=== PATIENT | male | born 1940 | race Caucasian/White ===

== ENCOUNTER → 2016-07-06 | Day surgery (SDC) | payer OTHER ==
[2016-07-01 11:16] VITALS: BMI 32.0
[~2016-07-06] VITALS: Ht 167.6 cm; Wt 90.0 kg
[~2016-07-06] MED LIST: ACET-1311 PO; ALBINS/ INH; ASPI81TA28 PO; BUSP-8 PO; CARV25TA2 PO; CLX20 PO; CRS/10 PO; DABI150C PO; DIGO0.122 PO; EpHEDrine SULFATE 50MG/5ML SYR ONE; FRS/40 PO; GABA-774 PO; GLYCOPYRROLATE INJ 0.2 MG/ML VIAL ONE; HYG/25 PO; KETAMINE HCL INJ 50 MG/ML 10 ML VIAL ONE; LIDOCAINE HCL 2% 2 ML VIAL (20MG/ML) ONE; LISI-461 PO; LORA10CA2 PO; MAGN400T6 PO; MELATAB2 PO; METF-383 PO; MIDAZOLAM HCL 1 MG/ML 2ML VIAL ONE; MULT-190 PO; NORT50CA PO; NTRGSL/4 UT; POTA20TA16 PO; PRLSR20 PO; PROPOFOL IV EMULSION 10 MG/ML 20 ML VIAL IV ONE; ROPI4TAB3 PO; SODIUM CHLORIDE 0.9% 500ML 500 ML IV ONE; TERA5CAP PO; UMEC1AER INH
[2016-07-06 08:29] VITALS: Ht 167.6 cm; Wt 90.0 kg
--- NOTE | 2016-07-06 08:47 | Endo History and Physical ---
History & Physical Date of Service: July 06, 2016. Chief Complaint: SCREENEING FOR COLON CANCER Referring Physician: DR GONZALEZ History of Present Illness screening colon cancer Past Surgical History Hx Cardiac Surgery: Yes (HEART CATH AND NO STENT) Hx Internal Defibrillator: Yes (01-17-13) Hx Pacemaker: Yes (01-17-13) Hx Abdominal Surgery: No Hx of Implantable Prosthesis: No Hx Post-Op Nausea and Vomiting: No Hx Cancer Surgery: No Hx Thoracic Surgery: No Hx Orthopedic: Yes (RIGHT FOOT BUNIONECTOMY, LT WRIST AND THUMB SURGERY) Hx Urinary Tract Surgery: No Family History None Social History Smoking Status: Former Smoker Hx Substance Use: No Hx Alcohol Use: No Allergies Coded Allergies: Pneumococcal Vaccine (Verified Allergy, Mild, SWELLING, HOT TO TOUCH AND HAD TO TAKE ANTIBIOTICS, 07/01/16) Current Medications Reported Home Medications Medications Dose Route/Sig Max Daily Dose Days Date Category Proventil 0.083% 2.5MG/3ML (Albuterol Sulf) 2.5 Mg/3 Ml Nebu 2.5 Mg INH QID PRN 07/01/16 Reported Melatonin Maximum Strengt (Melatonin) 5 Mg Tab 1 Tab PO HS 07/01/16 Reported Zestril (Lisinopril) 10 Mg Tab 10 Mg PO QPM 07/01/16 Reported Nitrostat (Nitroglycerin) 0.4 Mg Tab 0.4 Mg UT PRN 11/04/15 Reported Lasix (Furosemide) 40 Mg Tab 40 Mg PO DAILY PRN 11/04/15 Reported Klor-Con (Potassium Chloride) 20 Meq Tabcr 20 Meq PO TID 11/04/15 Reported Requip (Ropinirole HCl) 4 Mg Tab 4 Mg PO HS 11/04/15 Reported Hytrin (Terazosin HCl) 5 Mg Cap 5 Mg PO HS 11/04/15 Reported Pamelor (Nortriptyline HCl) 50 Mg Cap 50 Mg PO HS 11/04/15 Reported Horizant (Gabapentin Enacarbil) 300 Mg Tab 600 Mg PO HS 11/04/15 Reported Crestor (Rosuvastatin Calcium) 10 Mg Tab 10 Mg PO HS 11/04/15 Reported Lanoxin (Digoxin) 0.125 Mg Tab 0.125 Mg PO QPM 11/04/15 Reported Claritin (Loratadine) 10 Mg Cap 10 Mg PO NOON 9/12/16 Reported Mag-Ox (Magnesium Oxide) 400 Mg Tab 400 Mg PO NOON 11/04/15 Reported Ocuvite Preservision (Multivitamins/Minerals) 1 Tab Tab 1 Tab PO NOON 11/04/15 Reported Anoro Ellipta 62.5-25 Mcg/INH (Umeclidinium-Vilanterol) 1 Aer Aer 1 Puff INH QAM 11/04/15 Reported Citalopram Hydrobromide (Citalopram) 20 Mg Tab 20 Mg PO QAM 11/04/15 Reported Prilosec (Omeprazole) 20 Mg Capcr 20 Mg PO BID 11/04/15 Reported Glucophage (Metformin Hcl) 850 Mg Tab 850 Mg PO BID 11/04/15 Reported Pradaxa (Dabigatran Etexilate Mesylate) 150 Mg Cap 150 Mg PO BID 11/04/15 Reported Hygroton (Chlorthalidone) 25 Mg Tab 25 Mg PO QAM 11/04/15 Reported Coreg (Carvedilol) 25 Mg Tab 25 Mg PO BID 11/04/15 Reported Buspirone Hcl 10 Mg Tab 10 Mg PO QPM 11/04/15 Reported Aspirin Ec (Aspirin) 81 Mg Tab 81 Mg PO QAM 11/04/15 Reported Tylenol (Acetaminophen) 325 Mg Tab 650 Mg PO QID PRN 11/04/15 Reported Vital Signs Weight (Kilograms): 90.00 Height (Feet): 5 Height (Inches): 6 Date Time Temp Pulse Resp B/P Pulse Ox O2 Delivery O2 Flow Rate FiO2 07/06/16 08:20 36.2 63 22 168/73 96 Room Air Physical Exam General Appearance: WD/WN Respiratory/Chest: Auscultation: breath sounds normal Cardiovascular: Heart Auscultation: RRR Abdomen: Inspection & Palpation: soft Assessment and Plan screening colon cancer - Colonscopy
--- NOTE | 2016-07-06 09:20 | GI REPORT ---
Procedure Date: 07/06/2016 8:45 AM Procedure: Colonoscopy Indications: High risk colon cancer surveillance: Personal history of colonic polyps Medicines: See the Anesthesia note for documentation of the administered medications Complications: No immediate complications. Estimated Blood Loss: Estimated blood loss: none. Procedure: Pre-Anesthesia Assessment: - After reviewing the risks and benefits, the patient was deemed in satisfactory condition to undergo the procedure. - ASA Grade Assessment: III - A patient with severe systemic disease. After I obtained informed consent, the scope was passed under direct vision. Throughout the procedure, the patient's blood pressure, pulse, and oxygen saturations were monitored continuously. The scope was introduced through the anus and advanced to the terminal ileum. The colonoscopy was performed without difficulty. The patient tolerated the procedure well. The quality of the bowel preparation was good. Findings: The perianal and digital rectal examinations were normal. Multiple small and large-mouthed diverticula were found in the sigmoid colon. Two sessile polyps were found in the transverse colon and at the hepatic flexure. The polyps were 4 to 5 mm in size. These polyps were removed with a cold snare. Resection and retrieval were complete. The exam was otherwise without abnormality. Impression: - Diverticulosis in the sigmoid colon. - Two 4 to 5 mm polyps in the transverse colon and at the hepatic flexure, removed with a cold snare. Resected and retrieved. - The examination was otherwise normal. Recommendation: - Discharge patient to home. - Repeat colonoscopy in 3 years for surveillance. Agustín Parsons M.D. Agustín Parsons MD 07/06/2016 9:20:29 AM This report has been signed electronically. Note Initiated On: 07/06/2016 8:45 AM I attest to the content of the Intraoperative Record and orders documented therein, exceptions below
--- NOTE | 2016-07-06 09:29 | Discharge Instructions ---
Endoscopy Patient Instructions Date / Procedure(s) Performed July 06, 2016. Colonoscopy Allergy Information Coded Allergies: Pneumococcal Vaccine (Verified Allergy, Mild, SWELLING, HOT TO TOUCH AND HAD TO TAKE ANTIBIOTICS, 07/01/16) Discharge Date / Findings July 06, 2016. Three polyps, removed. Diverticulosis. Medication Instructions Stopped Medication(s): PRADAXA-LAST DOSE 07/03/16 ASPIRIN- LAST DOSE 07/01/16 METFORMIN-LAST DOSE 07/03/16 Restart Stopped Medication(s): Hold pradaxa x 2 days. Resume aspirin today. Provider Instructions Activity Restrictions - No exercising or heavy lifting for 24 hours. - Do not drink alcohol the day of the procedure. - Do not drive a car or operate machinery until the day after the procedure. - Do not make any important decisions or sign important papers in 24 hours after the procedure. Following Day: - Return to full activity which may include returning to work/school. Diet Start your diet with liquids and light foods (jello, soup, juice, toast). Then eat your usual diet if not nauseated. Treatment For Common After Affects For mild abdominal pain, bloating, or excessive gas: - Rest - Eat lightly - Lie on right side Follow-Up Information Follow-up with DR GONZALEZ as scheduled Anesthesia Information What You Should Know You have had a procedure that required some medicine to reduce anxiety and discomfort. This treatment is called moderate sedation. After receiving the treatment, you may be sleepy, but you will be able to breathe on your own. The effects of the treatment may last for several hours. Follow these instructions along with Activity/Diet recommendations noted above: * Do NOT do anything where dizziness or clumsiness would be dangerous. * Rest quietly at home today, then you can be up and about tomorrow. * Have a responsible person stay with you the rest of today. * You may have had an I.V. today. If so, you may take the dressing off later today. Recommendations Call your doctor if: * Trouble breathing * Continuous vomiting for more than 24 hours * Temperature above 101 degrees * Severe abdominal pain or bloating * Pain not relieved by pain medicine ordered * There is increased drainage or redness from any incision * A large amount of rectal bleeding greater than 2-3 tablespoons. (If you had a polyp/s removed or have hemorrhoids, a small amount of blood - from the rectum is to be expected.) * You have any unanswered questions or concerns. IN THE EVENT OF A SERIOUS EMERGENCY, GO TO THE NEAREST EMERGENCY ROOM Your discharge instructions were prepared by provider Agustín Diane. Patient Instructions Signature Page Kamar Hendrickson Patient (or Guardian) Signature/Date: I have read and understand the instructions given to me by my caregivers. Caregiver/RN/Doctor Signature/Date: The above-named patient and/or guardian has received patient instructions on this date. + Original Patient Signature Page (only) stays with chart. Please make copy for patient.
--- NOTE | 2016-07-06 09:35 | Anesthesiology Progress Note ---
Anesthesia Post Op Note Date & Time July 06, 2016 at 09:35 Vital Signs Pain Intensity: 0 Vital Signs Past 12 Hours Date Time Temp Pulse Resp B/P Pulse Ox O2 Delivery O2 Flow Rate FiO2 07/06/16 09:27 60 20 116/53 95 Room Air 07/06/16 08:20 36.2 63 22 168/73 96 Room Air Notes Mental Status: alert / awake / arousable, participated in evaluation Pt Amnestic to Procedure: Yes Nausea / Vomiting: adequately controlled Pain: adequately controlled Airway Patency, RR, SpO2: stable & adequate BP & HR: stable & adequate Hydration State: stable & adequate Anesthetic Complications: no major complications apparent
[2016-07-06 10:05] VITALS: BP 134/73; PULSE 60; O2SAT 97
== END | disposition home or self-care (01) ==
LOC: C.GI 08:00
PROVIDERS: ATTEND Internal Medicine Gastroenterology
DX: Z12.11 Encounter for screening for malignant neoplasm of colon (principal); D12.3 Benign neoplasm of transverse colon; K57.90 Diverticulosis of intestine, part unspecified, without perforation or abscess without bleeding; Z86.010 Personal history of colon polyps; Z79.82 Long term (current) use of aspirin; Z87.891 Personal history of nicotine dependence; Z95.810 Presence of automatic (implantable) cardiac defibrillator